=== PATIENT | female | born 1970 | race Caucasian/White ===

== ENCOUNTER 2017-05-20 07:39 | Emergency (ER) | payer BC ==
[2017-05-20] MEDS ORDERED: HYDROmorphone 1 MG/ML Syringe IVPUSH ONE ×2 (07:52→08:30)
[2017-05-20] MEDS ORDERED: Sodium Chloride 0.9% 10 ML Syringe FLUSH PRN (07:52)
[2017-05-20] MEDS ORDERED: Lactated Ringers 1,000 ML IV SCH (08:00)
--- NOTE | 2017-05-20 08:32 | EDM.PDOC ---
ED HPI GENERAL MEDICAL PROBLEM - General Chief Complaint: Upper Extremity Injury/Pain Stated Complaint: LEFT WRIST INJURY Time Seen by Provider: 05/20/17 07:50 Source of Information: Reports: Patient History Limitations: Reports: No Limitations - History of Present Illness INITIAL COMMENTS - FREE TEXT/NARRATIVE: The patient presents with left wrist pain. She was out milking and her ankle gave out and she fell on her arm. Her left wrist is deformed. She has no other injuries. She is left handed. Onset: Sudden Duration: Minutes: Location: Reports: Upper Extremity, Left (wrist) Quality: Reports: Sharp Severity: Severe Improves with: Reports: None Worsens with: Reports: None Context: Reports: Activity Associated Symptoms: Reports: No Other Symptoms Left Arm Pain Score (Numeric/FACES): 10 - Related Data Allergies Allergy/AdvReac Type Severity Reaction Status Date / Time codeine Allergy Rash Verified 05/20/17 07:48 Penicillins Allergy Rash Verified 05/20/17 07:48 Sulfa (Sulfonamide Allergy Rash Verified 05/20/17 07:48 Antibiotics) Home Meds: Home Meds . [No Known Home Meds] 05/20/17 [History] Past Medical History - Past Surgical History Female Surgical History: Reports: Section, Hysterectomy Social & Family History - Tobacco Use Smoking Status *Q: Never Smoker - Recreational Drug Use Recreational Drug Use: No Review of Systems - Review of Systems Review Of Systems: See Below Constitutional: Reports: No Symptoms Eyes: Reports: No Symptoms Ears: Reports: No Symptoms Nose: Reports: No Symptoms Mouth/Throat: Reports: No Symptoms Respiratory: Reports: No Symptoms Cardiovascular: Reports: No Symptoms GI/Abdominal: Reports: No Symptoms Genitourinary: Reports: No Symptoms Musculoskeletal: Reports: Other (Left wrist pain) ED EXAM, GENERAL - Physical Exam Exam: See Below Exam Limited By: No Limitations General Appearance: Alert, No Apparent Distress Ears: Normal External Exam Nose: Normal Inspection Head: Atraumatic, Normocephalic Neck: Normal Inspection Respiratory/Chest: No Respiratory Distress, Lungs Clear, Normal Breath Sounds Cardiovascular: Regular Rate, Rhythm, No Edema, No Murmur GI/Abdominal: Soft, Non-Tender, No Organomegaly, No Mass Extremities: Other (Left wrist deformity. Good sensation and capillary refill. She can move her fingers. Pain upon palpation to the left wrist.) ED TRAUMA EXTREMITY PROCEDURES - Splinting Left Upper Extremity Splint Site: Left wrist Pre-Procedure NV Status: Normal Post-Procedure NV Status: Normal Splint Material: Fiberglass Splint Design: Sugar Tong Applied & Form Fitted By: Provider Provider Post-Splint Application NV Check: NV Status Normal, Good Position Complications: No Course - Vital Signs Last Recorded V/S: Last Vital Signs Temp 97.6 F 05/20/17 07:46 Pulse 84 05/20/17 07:46 Resp 20 05/20/17 07:46 BP 131/60 05/20/17 07:46 Pulse Ox 100 05/20/17 07:46 - Orders/Labs/Meds Orders: Active Orders 24 hr Category Date Time Status Peripheral IV Care [RC] . DIRECTED Care 05/20/17 07:52 Active Wrist Comp Min 3V Lt [CR] Stat Exams 05/20/17 07:52 Taken Lactated Ringers [Ringers, Lactated] 1,000 ml Med 05/20/17 08:00 Active IV ASDIRECTED Sodium Chloride 0.9% [Saline Flush] Med 05/20/17 07:52 Active 10 ml FLUSH ASDIRECTED PRN Peripheral IV Insertion Adult [OM.PC] Routine Oth 05/20/17 07:52 Ordered Medication Orders Lactated Ringer's (Ringers, Lactated) 1,000 mls @ 100 mls/hr IV ASDIRECTED JEF Last Admin: 05/20/17 08:01 Dose: 100 mls/hr Sodium Chloride (Saline Flush) 10 ml FLUSH ASDIRECTED PRN PRN Reason: Keep Vein Open Last Admin: 05/20/17 08:03 Dose: 10 ml Meds: Medications Generic Name Dose Route Start Last Admin Trade Name Freq PRN Reason Stop Dose Admin Lactated Ringer's 1,000 mls @ 100 mls/hr 05/20/17 08:00 05/20/17 08:01 Ringers, Lactated IV 100 mls/hr ASDIRECTED JEF Administration Sodium Chloride 10 ml 05/20/17 07:52 05/20/17 08:03 Saline Flush FLUSH 10 ml ASDIRECTED PRN Administration Keep Vein Open Discontinued Medications Generic Name Dose Route Start Last Admin Trade Name Freq PRN Reason Stop Dose Admin Hydromorphone HCl 1 mg 05/20/17 07:52 05/20/17 08:01 Dilaudid IVPUSH 05/20/17 07:53 1 mg ONETIME ONE Administration - Re-Assessments/Exams Free Text/Narrative Re-Assessment/Exam: 05/20/17 08:32 I ordered an IV LR at 100mL/hr, dilaudid 1mg IV, and an x-ray of her wrist. The x-ray shows a distal radius fracture with joint involvement. I called [facility] [place]. Dr Shirley the vocational nurse [facility]vn orthopedic surgeon saw the films and he wanted her NPO and have her come down there and he will operate on her today. I will give her another dose of dilaudid 1mg and splint her and get her going. Departure - Departure Time of Disposition: 08:40 Disposition: Home, Self-Care 01 Condition: Good Clinical Impression: Fracture of radius and ulna Qualifiers: Encounter type: initial encounter Fracture type: closed Laterality: left Qualified Code(s): S52.202A - Unspecified fracture of shaft of left ulna, initial encounter for closed fracture; S52.92XA - Unspecified fracture of left forearm, initial encounter for closed fracture Fall Qualifiers: Encounter type: initial encounter Qualified Code(s): W19.XXXA - Unspecified fall, initial encounter - Discharge Information Referrals: Abi Skelton PA-C [Primary Care Provider] - Forms: ED Department Discharge Additional Instructions: Go directly to [facility]. They will be expecting you. Do not eat or drink anything. Ice your arm on he way and elevate it. - My Orders Last 24 Hours: My Active Orders 05/20/17 07:52 Peripheral IV Care [RC] . DIRECTED Wrist Comp Min 3V Lt [CR] Stat Sodium Chloride 0.9% [Saline Flush] 10 ml FLUSH ASDIRECTED PRN Peripheral IV Insertion Adult [OM.PC] Routine 05/20/17 08:00 Lactated Ringers [Ringers, Lactated] 1,000 ml IV ASDIRECTED - Assessment/Plan Last 24 Hours: My Active Orders 05/20/17 07:52 Peripheral IV Care [RC] . DIRECTED Wrist Comp Min 3V Lt [CR] Stat Sodium Chloride 0.9% [Saline Flush] 10 ml FLUSH ASDIRECTED PRN Peripheral IV Insertion Adult [OM.PC] Routine 05/20/17 08:00 Lactated Ringers [Ringers, Lactated] 1,000 ml IV ASDIRECTED
[2017-05-20] MEDS ORDERED: HYDROmorphone 0.5 MG/0.5 ML Syringe IVPUSH ONE (08:49)
[2017-05-20 09:19] VITALS: BP 108/68
--- NOTE | 2017-05-21 08:36 | CR ---
Left wrist: Three views of the left wrist were obtained. Comparison: No previous wrist study. Comminuted distal radial fracture is seen with articular extension. Posterior impaction with posterior tilt of the distal radial articular margin is seen. Slightly displaced fracture is noted within the tip of the ulnar styloid process. Soft tissue swelling is identified. No additional abnormality is appreciated. Impression: 1. Distal radial fracture as described above. Ulnar styloid avulsion fracture also noted. 2. Soft tissue swelling. Diagnostic code #3
== END 2017-05-20 09:06 | disposition home or self-care (01) ==
LOC: JD.ED 07:39
DX: S52.202A Unspecified fracture of shaft of left ulna, initial encounter for closed fracture (principal); S52.92XA Unspecified fracture of left forearm, initial encounter for closed fracture; Z88.5 Allergy status to narcotic agent; Z88.0 Allergy status to penicillin; Z88.2 Allergy status to sulfonamides; Z90.710 Acquired absence of both cervix and uterus; W19.XXXA Unspecified fall, initial encounter
CPT/HCPCS: 29125; 73110; 96361; 96374; 96376; 99284; J1170; J7050; J7120; 29105

== ENCOUNTER 2018-07-25 08:14 | Day surgery (SDC) | payer BC ==
[~2018-07-25 08:14] MED LIST: Lactated Ringers 1,000 ML IV SCH; Sodium Chloride 0.9% 10 ML Syringe FLUSH PRN
[2018-07-25] MEDS ORDERED: Propofol 200 MG/20 ML SDV ONE (08:19)
[2018-07-25] MEDS ORDERED: fentaNYL 100 MCG/2 ML SDV ONE ×2 (08:20→10:14)
[2018-07-25] MEDS ORDERED: Sodium Bicarbonate 8.4% 50 MEQ/50 ML SDV ONE (08:20)
[2018-07-25] MEDS ORDERED: Lidocaine 0.5% 50 ML SDV ONE (08:20)
[2018-07-25] MEDS ORDERED: Dexamethasone 4 MG/ML 5 ML MDV ONE (08:29)
[2018-07-25] MEDS ORDERED: Ondansetron 4 MG/2 ML SDV ONE (08:29)
[2018-07-25] MEDS ORDERED: Midazolam 1 MG/ML 2 ML SDV ONE (08:30)
[2018-07-25] MEDS: Lidocaine 1%/Sod Bicarbonate in NS 8.4% 1 ML Syringe IDERM PRN ×2 (08:32→08:47)
[2018-07-25] MEDS ORDERED: Bupivacaine 0.25% 30 ML SDV ONE (08:53)
--- NOTE | 2018-07-25 09:19 | PCM.PREANE ---
Preanesthetic Assessment - Procedure Proposed Procedure: Left wrist hardware removal - Anesthesia/Transfusion/Family Hx Anesthesia History: Prior Anesthesia Reaction Type of Anesthesia Reaction: Excessive Nausea/Vomiting Family History of Anesthesia Reaction: No Transfusion History: No Prior Transfusion(s) Additional History: Raynauds syndrome - Review of Systems General: No Symptoms Pulmonary: No Symptoms Cardiovascular: No Symptoms Gastrointestinal: Other (Occasional GERD depeniding on diet ) Neurological: No Symptoms Other: Reports: Easy Bruising - Physical Assessment NPO Status Date: 07/24/18 NPO Status Time: 23:50 O2 Sat by Pulse Oximetry: 97 Respiratory Rate: 17 Vital Signs: Last Vital Signs Temp 36.7 C 07/25/18 08:20 Pulse 81 07/25/18 08:20 Resp 17 07/25/18 08:20 BP 132/73 07/25/18 08:20 Pulse Ox 97 07/25/18 08:20 Height: 1.63 m Weight: 98.8 kg ASA Class: 2 Mental Status: Alert & Oriented x3 Airway Class: Mallampati = 2 Dentition: Reports: Normal Dentition Thyro-Mental Finger Breadths: 3 Mouth Opening Finger Breadths: 3 ROM/Head Extension: Full Lungs: Clear to Auscultation, Normal Respiratory Effort Cardiovascular: Regular Rate, Regular Rhythm - Lab Values: Laboratory Last Values MRSA (PCR) Negative 07/23/18 15:23 - Allergies Allergies/Adverse Reactions: Allergies Allergy/AdvReac Type Severity Reaction Status Date / Time codeine Allergy Rash Verified 07/24/18 14:06 Penicillins Allergy Rash Verified 07/24/18 14:06 Sulfa (Sulfonamide Allergy Rash Verified 07/24/18 14:06 Antibiotics) - Blood Blood Available: No Product(s) Available: None - Anesthesia Plan Pre-Op Medication Ordered: None - Acknowledgements Anesthesia Type Planned: MARLENE Pt an Appropriate Candidate for the Planned Anesthesia: Yes Alternatives and Risks of Anesthesia Discussed w Pt/Guardian: Yes Pt/Guardian Understands and Agrees with Anesthesia Plan: Yes PreAnesthesia Questionnaire HEENT History: Reports: Impaired Vision, Sinusitis, Other (See Below) Other HEENT History: pharyngitis, blepharitis Cardiovascular History: Reports: None Respiratory History: Reports: Other (See Below) Other Respiratory History: URI, cough, bronchitis Gastrointestinal History: Reports: Other (See Below) Other Gastrointestinal History: nausea Genitourinary History: Reports: Other (See Below) Other Genitourinary History: interstitial cystitis REPRODUCTION ARTIST History: Reports: , Other (See Below) Other OB/BYN History: pelvic pain Musculoskeletal History: Reports: Other (See Below) Other Musculoskeletal History: right hand injury, abdominal muscle strain Neurological History: Reports: None Psychiatric History: Reports: None Endocrine/Metabolic History: Reports: None Hematologic History: Reports: None Immunologic History: Reports: None Oncologic (Cancer) History: Reports: None Dermatologic History: Reports: None - Past Surgical History Head Surgeries/Procedures: Reports: None HEENT Surgical History: Reports: LASIK, Tonsillectomy Cardiovascular Surgical History: Reports: None Respiratory Surgical History: Reports: None GI Surgical History: Reports: Appendectomy Female Surgical History: Reports: Section, Hysterectomy, Oophorectomy Endocrine Surgical History: Reports: None Neurological Surgical History: Reports: None Oncologic Surgical History: Reports: None Dermatological Surgical History: Reports: None - SUBSTANCE USE Smoking Status *Q: Never Smoker Recreational Drug Use History: No - HOME MEDS Home Medications: Home Meds traMADol HCl [Ultram] 50 - 100 mg PO Q6H PRN #30 tablet 07/25/18 [Rx] - CURRENT (IN HOUSE) MEDS Current Meds: Current Medications Lactated Ringer's (Ringers, Lactated) 1,000 mls @ 125 mls/hr IV ASDIRECTED JEF Stop: 07/25/18 23:00 Lidocaine/Sodium Bicarbonate (Buffered Lidocaine 1% In Ns 8.4%) 0.25 ml IDERM ONETIME PRN PRN Reason: Prior to IV Start Stop: 07/25/18 18:00 Sodium Chloride (Saline Flush) 10 ml FLUSH ASDIRECTED PRN PRN Reason: Keep Vein Open Stop: 07/25/18 18:00 Discontinued Medications Bupivacaine HCl (Marcaine 0.25%) Confirm Administered Dose 30 ml .ROUTE .STK- MED ONE Stop: 07/25/18 08:54 Dexamethasone (Dexamethasone) Confirm Administered Dose 20 mg .ROUTE .STK-MED ONE Stop: 07/25/18 08:30 Fentanyl (Sublimaze) Confirm Administered Dose 100 mcg .ROUTE .STK-MED ONE Stop: 07/25/18 08:21 Lidocaine HCl (Xylocaine-Mpf 0.5%) Confirm Administered Dose 50 ml .ROUTE .STK- MED ONE Stop: 07/25/18 08:21 Midazolam HCl (Versed 1 Mg/Ml) Confirm Administered Dose 2 mg .ROUTE .STK-MED ONE Stop: 07/25/18 08:31 Ondansetron HCl (Zofran) Confirm Administered Dose 4 mg .ROUTE .STK-MED ONE Stop: 07/25/18 08:30 Propofol (Diprivan 20 Ml) Confirm Administered Dose 400 mg .ROUTE .STK-MED ONE Stop: 07/25/18 08:20 Sodium Bicarbonate (Sodium Bicarbonate 8.4%) Confirm Administered Dose 50 meq .ROUTE .STK-MED ONE Stop: 07/25/18 08:21
[2018-07-25] MEDS ORDERED: Ketorolac 30 MG/ML SDV ONE (11:03)
--- NOTE | 2018-07-25 11:16 | PCM48HPAN ---
Post Anesthesia Note - EVALUATION WITHIN 48HRS OF ANESTHETIC Vital Signs in Normal Range: Yes Patient Participated in Evaluation: Yes Respiratory Function Stable: Yes Airway Patent: Yes Cardiovascular Function Stable: Yes Hydration Status Stable: Yes Pain Control Satisfactory: Yes Nausea and Vomiting Control Satisfactory: Yes Mental Status Recovered: Yes Pulse Rate: 86 SaO2: 92 Resp Rate: 16 Temperature: 36.7 C Blood Pressure: 117/61
[2018-07-25] MEDS ORDERED: traMADol 50 MG Tab PO PRN (11:45)
[2018-07-25 12:10] VITALS: BP 117/65
--- NOTE | 2018-07-25 14:05 | CR ---
Left wrist: Single oblique/lateral view of the left wrist was obtained utilizing C-arm device. Lucencies are seen compatible with removed hardware within the distal radius. Healed distal radial fracture appears to be present. Fluoroscopy time given as 1.2 seconds. Impression: 1. Operative study as noted above. Diagnostic code #2
--- NOTE | 2018-08-05 09:31 | PCM.OPNOTE ---
- General Post-Op/Procedure Note Date of Surgery/Procedure: 07/25/18 Operative Procedure(s): left wrist deep hardware removal Pre Op Diagnosis: left wrist painful hardware Post-Op Diagnosis: Same Anesthesia Technique: General LMA, Local Primary Surgeon: Chapito Phan Anesthesia Provider: Lb Sanchez EBLayo in mLs: 5 Complications: None Condition: Good
--- NOTE | 2018-08-05 09:56 | OR ---
DATE OF OPERATION: 07/25/2018 SURGEON: Chapito Phan MD OPERATION PERFORMED: Left wrist deep hardware removal. PREOPERATIVE DIAGNOSIS: Left wrist painful hardware. POSTOPERATIVE DIAGNOSIS: Left wrist painful hardware. ANESTHESIA: General LMA with local. ANESTHESIA PROVIDER: Lb Sanchez. ROTOR BALANCER: None. ESTIMATED BLOOD LOSS: 5 mL. COMPLICATIONS: None. CONDITION: Stable. DESCRIPTION OF PROCEDURE: The patient was identified in the preoperative holding area. Proper site was marked and identified by the surgeon. The patient was taken back to the operating theater where after adequate anesthesia, the patient's left upper extremity was sterilely prepped and draped in the usual sterile fashion. OR time-out was performed. The patient received 2 g IV Ancef. At this time, left upper extremity was exsanguinated. Tourniquet was insufflated to 225 mmHg. Standard previous incision was utilized, this was taken down, and median nerve was protected ulnarly. At this time, the FCR tendon was also retracted ulnarly to protect the neurovascular bundle. At this time, there was noted to be significant soft tissue overgrowth over the plate this. Was all elevated off the plate and all the screw holes were identified and all screws were then removed. At this time, the plate was then removed. All bony prominences or exostoses were removed at this time that were noted to be flush with the bone. At this time, adequate saline was irrigated through the wound, 3-0 Vicryl was used for closure of the tendon sheath as well as subcutaneously and then Monocryl was used for the skin. The patient was placed in a sterile soft dressing and sent to the PACU in stable condition. MMODAL /[id number]
== END 2018-07-25 12:03 | disposition home or self-care (01) ==
LOC: JD.SDS 08:14
PROVIDERS: ATTEND Orthopaedic Surgery
DX: T84.84XA Pain due to internal orthopedic prosthetic devices, implants and grafts, initial encounter (principal); E66.9 Obesity, unspecified; Z68.37 Body mass index [BMI] 37.0-37.9, adult; J06.9 Acute upper respiratory infection, unspecified; Z88.5 Allergy status to narcotic agent; Z88.0 Allergy status to penicillin; Z88.2 Allergy status to sulfonamides
CPT/HCPCS: 01830; 76000; 76000-26; 87641; A9270-GY; J1100; J1885; J2250; J2405; J2704; J3010; J3490; J7050; J7120

== ENCOUNTER 2023-03-14 18:21 | Emergency (ER) | payer BC ==
[2023-03-14 18:37] VITALS: BP 127/73; PULSE 83
[2023-03-14] MEDS: Lidocaine 1% 10 ML MDV INJECT ONE (18:44)
== END 2023-03-14 19:32 | disposition home or self-care (01) ==
LOC: JD.ED 18:21
DX: I83.892 Varicose veins of left lower extremity with other complications (principal); Z88.0 Allergy status to penicillin; Z88.2 Allergy status to sulfonamides; Z88.5 Allergy status to narcotic agent; Z98.890 Other specified postprocedural states
CPT/HCPCS: 12001; 99282; J3490

== ENCOUNTER 2024-08-27 07:00 | Day surgery (SDC) | payer BC ==
[~2024-08-27 07:00] MED LIST changes: -Lactated Ringers 1,000 ML IV SCH; +Scopalamine 1mg/3day Transdermal Patch TOP SCH; +Sodium Chloride 0.9% 10 ML Syringe FLUSH SCH
[2024-08-27] MEDS ORDERED: Dexamethasone 4 MG/ML 5 ML MDV ONE (07:02)
[2024-08-27] MEDS ORDERED: Propofol 200 MG/20 ML SDV ONE ×5 (07:02→10:01)
[2024-08-27] MEDS ORDERED: Ondansetron 4 MG/2 ML SDV ONE ×2 (07:02→08:49)
[2024-08-27] MEDS ORDERED: dexmedeTOMIDine HCl 200 MCG/2 ML SDV ONE (07:02)
[2024-08-27] MEDS ORDERED: Midazolam 1 MG/ML 2 ML SDV ONE (07:02)
[2024-08-27] MEDS ORDERED: Ropivacaine 0.5% 5 MG/ML 30 ML SDV ONE (07:03)
[2024-08-27] MEDS: Lactated Ringers 1,000 ML IV SCH (07:15)
[2024-08-27] MEDS: Scopalamine 1mg/3day Transdermal Patch TOP SCH (07:25)
[2024-08-27] MEDS ORDERED: ePHEDrine 50 MG/ML SDV ONE (09:01)
[2024-08-27] MEDS ORDERED: Phenylephrine 1% 10 MG/ML SDV ONE (09:02)
[2024-08-27] MEDS ORDERED: ceFAZolin 2 GM Vial ONE (09:02)
[2024-08-27] MEDS ORDERED: Lactated Ringers 1,000 ML IV ONE (09:05)
[2024-08-27] MEDS: Morphine 8 MG, EPINEPHrine 0.3 MG, Cefuroxime 750 MG, Ketorolac 30 MG, Sodium Chloride ... PRN (09:58)
[2024-08-27] MEDS: Vancomycin 1 GM SDV ONE (10:05)
[2024-08-27] MEDS: Tranexamic Acid 1,000 MG/10 ML Vial ONE (10:05)
[2024-08-27] MEDS: Triamcinolone Acetonide 40 MG/ML 1 ML SDV ONE (10:22)
[2024-08-27] MEDS: Bupivacaine 0.25% 10 ML SDV ONE (10:22)
[2024-08-27] MEDS ORDERED: fentaNYL 100 MCG/2 ML SDV IVPUSH PRN (10:40)
[2024-08-27] MEDS ORDERED: HYDROmorphone 0.5 MG/0.5 ML Syringe IVPUSH ONE (10:40)
[2024-08-27] MEDS ORDERED: droPERidol 5 MG/2 ML SDV IVPUSH ONE (10:41)
[2024-08-27] MEDS: oxyCODONE 5 MG Tab PO PRN (11:20)
[2024-08-27 15:27] VITALS: BP 136/67; PULSE 77
== END 2024-08-27 15:15 | disposition home or self-care (01) ==
LOC: JD.SDS 07:00
PROVIDERS: ATTEND Orthopaedic Surgery
DX: M17.0 Bilateral primary osteoarthritis of knee (principal); K21.9 Gastro-esophageal reflux disease without esophagitis; E03.9 Hypothyroidism, unspecified; Z79.899 Other long term (current) drug therapy; Z88.0 Allergy status to penicillin; Z88.2 Allergy status to sulfonamides
CPT/HCPCS: 0055T; 20610; 27447; 64447; 73560; 97110; 97116; 97161; A9270; C1713; C1776; J0171; J0665; J0690; J0697; J1100; J1885; J2250; J2270; J2371; J2405; J2704; J2795; J3301; J7120; 01402; J3490

== ENCOUNTER 2024-12-01 08:34 | Day surgery (SDC) | payer BC ==
[~2024-12-01 08:34] MED LIST changes: +Scopalamine 1mg/3day Transdermal Patch TOP ONE; -Scopalamine 1mg/3day Transdermal Patch TOP SCH
[2024-12-01] MEDS ORDERED: EPINEPHrine 1 MG/ML SDV ONE (08:44)
[2024-12-01] MEDS ORDERED: Propofol 200 MG/20 ML SDV ONE ×4 (08:58→11:08)
[2024-12-01] MEDS ORDERED: fentaNYL 100 MCG/2 ML SDV ONE (08:59)
[2024-12-01] MEDS: Lactated Ringers 1,000 ML IV SCH (09:00)
[2024-12-01] MEDS: Scopalamine 1mg/3day Transdermal Patch TOP SCH (09:07)
[2024-12-01] MEDS ORDERED: Dexamethasone 4 MG/ML 5 ML MDV ONE (09:27)
[2024-12-01] MEDS ORDERED: dexmedeTOMIDine HCl 200 MCG/2 ML SDV ONE (09:27)
[2024-12-01] MEDS ORDERED: Ondansetron 4 MG/2 ML SDV ONE (09:27)
[2024-12-01] MEDS ORDERED: Ropivacaine 0.5% 5 MG/ML 30 ML SDV ONE (09:44)
[2024-12-01] MEDS ORDERED: ceFAZolin 2 GM Vial ONE (09:44)
[2024-12-01] MEDS ORDERED: ePHEDrine 50 MG/ML SDV ONE (10:04)
[2024-12-01] MEDS ORDERED: Phenylephrine 1% 10 MG/ML SDV ONE (10:36)
[2024-12-01] MEDS ORDERED: Lactated Ringers 1,000 ML ONE (10:40)
[2024-12-01] MEDS: Morphine 8 MG, EPINEPHrine 0.3 MG, Cefuroxime 750 MG, Ketorolac 30 MG, Sodium Chloride ... PRN (11:04)
[2024-12-01] MEDS: VANCOmycin 1 GM SDV ONE (11:05)
[2024-12-01] MEDS: Tranexamic Acid 1,000 MG/10 ML Vial ONE (11:05)
[2024-12-01] MEDS ORDERED: Ketorolac 30 MG/ML SDV ONE (11:20)
[2024-12-01] MEDS ORDERED: fentaNYL 100 MCG/2 ML SDV IVPUSH PRN (11:50)
[2024-12-01] MEDS ORDERED: Ondansetron 4 MG/2 ML SDV IVPUSH PRN (11:50)
[2024-12-01] MEDS: oxyCODONE 5 MG Tab PO PRN (12:30)
[2024-12-01 15:19] VITALS: BP 111/56; PULSE 83
== END 2024-12-01 15:12 | disposition home or self-care (01) ==
LOC: JD.SDS 08:34
PROVIDERS: ATTEND Orthopaedic Surgery
DX: M17.11 Unilateral primary osteoarthritis, right knee (principal); K21.9 Gastro-esophageal reflux disease without esophagitis; E03.9 Hypothyroidism, unspecified; Z79.899 Other long term (current) drug therapy; Z88.0 Allergy status to penicillin; Z88.2 Allergy status to sulfonamides; Z88.5 Allergy status to narcotic agent
CPT/HCPCS: 0055T; 27447; 64447; 73560; 97116; 97161; A9270; C1713; C1776; J0171; J0690; J0697; J1100; J1885; J2272; J2371; J2405; J2704; J2795; J3010; J7120; J3490